=== PATIENT | female | born 1970 | race Caucasian/White ===

== ENCOUNTER 2023-01-21 08:05 | Day surgery (SDC) | payer MEDICAID ==
[2023-01-15 10:57] LABS: BASOPHILS # (AUTO) 0.2 X10'3 (0-0.2); BASOPHILS % (AUTO) 1.7 % (0-1); EOSINOPHILS # (AUTO) 0.8 X10'3 (0-0.9); EOSINOPHILS % (AUTO) 8.3 % (0-6); LYMPHOCYTES # (AUTO) 3.1 X10'3 (1.1-4.8); LYMPHOCYTES % (AUTO) 31.9 % (21-51); MEAN CORPUSCULAR HEMOGLOBIN 28.6 PG (27.0-31.0); MEAN CORPUSCULAR HGB CONC 33.3 g/dL (33.0-36.5); MEAN CORPUSCULAR VOLUME 85.9 FL (78-98); MEAN PLATELET VOLUME 8.6 FL (7.4-10.4); MONOCYTES # (AUTO) 0.8 X10'3 (0-0.9); MONOCYTES % (AUTO) 8.7 % (2-12); NEUTROPHILS # (AUTO) 4.8 X10'3 (1.8-7.7); NEUTROPHILS % (AUTO) 49.4 % (42-75); PRE OP HEMATOCRIT 47.4 % (35.0-45.0); PRE OP HEMOGLOBIN 15.8 g/dL (12.0-16.0); PRE OP PLATELET COUNT 261 X10'3 (140-440); PRE OP WHITE BLOOD COUNT 9.7 10'3 (4.8-10.8); RED BLOOD COUNT 5.52 X10'6 (4.20-5.60); RED CELL DISTRIBUTION WIDTH 14.9 % (11.5-14.5)
[2023-01-15 11:09] LABS: ALBUMIN 3.6 G/DL (3.4-5.0); ALBUMIN/GLOBULIN RATIO 1.1 (1.1-1.5); ALKALINE PHOSPHATASE 77 IU/L (46-116); BLOOD UREA NITROGEN 15 MG/DL (7-18); CHLORIDE 107 MMOL/L (99-107); CREATININE 0.75 MG/DL (0.40-0.90); PRE OP ALT 25 U/L (30-65); PRE OP ANION GAP 8 (8-16); PRE OP AST 15 U/L (10-37); PRE OP BILIRUB, TOTAL 0.4 MG/DL (0.0-1.0); PRE OP GLUCOSE 102 MG/DL (70-104); PRE OP POTASSIUM 4.2 MMOL/L (3.4-5.1); PRE OP SODIUM 143 MMOL/L (135-145); TOTAL CARBON DIOXIDE 27.9 MMOL/L (24-32); eGFR 81 ML/MIN
[~2023-01-21] VITALS: Ht 162.6 cm; Wt 106.0 kg
[2023-01-21] VITALS (14 sets, daily range): BP systolic 120–154; BP diastolic 75–103; PULSE 59–87; RESP 10–16; TEMP 97.9; O2SAT 91–97
[~2023-01-21 08:05] MED LIST: BUPIVAcaine/PF 2.5mg/ml (0.25%) 10ml vial ONE; NO HOME MEDS; clindamycin-Cleocin 900mg/D5W 50 ML IV ONE; famotidine 20mg tablet PO ONE; ringers solution, lacted 1,000 ML IV SCH
[2023-01-21] MEDS ORDERED: ondansetron/PF 4mg/2ml inj IV PRN (09:25)
[2023-01-21] MEDS ORDERED: meperidine/PF 25mg/ml syringe IV PRN ×2 (09:25)
[2023-01-21] MEDS ORDERED: hydrALAZINE 20mg/ml inj. IV PRN (09:25)
[2023-01-21] MEDS ORDERED: ringers solution, lacted 1,000 ML IV SCH (09:25)
[2023-01-21] MEDS ORDERED: acetaminophen 1,000mg/100ml IV 100 ML IV PRN (09:25)
[2023-01-21] MEDS ORDERED: proCHLORperazine 10 MG/2 ml inj IV PRN (09:25)
[2023-01-21] MEDS ORDERED: HYDROmorphone/PF 0.2 MG/ML SYRINGE IV PRN ×2 (09:25)
[2023-01-21] MEDS ORDERED: labetalol 20mg/4ml (5mg/ml) syringe IV PRN (09:25)
[2023-01-21] MEDS ORDERED: sevoflurane 250ml liquid IH ONE (09:32)
[2023-01-21] MEDS ORDERED: fentaNYL/PF 50MCG/1 ML 2ML syringe ONE (09:34)
[2023-01-21] MEDS ORDERED: MIDAZolam 1 MG/ML 5ML VIAL ONE (09:35)
[2023-01-21] MEDS ORDERED: LIDOcaine 0.5% (5mg/ml) 50ml vial ONE (09:51)
[2023-01-21] MEDS ORDERED: propofol inj 20 ML IV ONE ×2 (09:51→10:00)
[2023-01-21] MEDS ORDERED: ondansetron/PF 4mg/2ml inj ONE (10:00)
[2023-01-21] MEDS ORDERED: dexamethasone sod phosphate 4mg/ml inj. ONE (10:00)
--- NOTE | 2023-01-21 10:19 | NUR ---
Received from OR via [facility] accompanied by Anesthesiologist DR DIANE and report given by Anesthesiolgist. VSS. PATIENT TEARFUL. IV IN LEFT HAND 20G NO ISSUES. DRESSING AND BANDAGE ON R ELBOW AND R WRIST, CDI.
--- NOTE | 2023-01-21 10:19 | NUR ---
Received from OR via [facility] accompanied by Anesthesiologist DR RODRÍGUEZ and report given by Anesthesiolgist. VSS. IV IN LEFT HAND 20G NO ISSUES. DRESSING WITH QACE BANDAGE ON R ELBOW AND R WRIST, CDI...PATIENT TEARFUL Addendum: 01/21/23 at 1045 by Glory Bee RN Amended: Links added.
[2023-01-21] MEDS: meperidine/PF 25mg/ml syringe IV PRN ×2 (10:59→11:12)
--- NOTE | 2023-01-21 11:10 | NUR ---
PATIENT HAS MINIMAL BLEED AT RIGHT ELBOW. SPOKE WITH SURGEON. ORDERS TO REINFORCE WITH 4X4 PRESSURE DRESSING AND HAROLDO BANDAGE
--- NOTE | 2023-01-21 11:59 | NUR ---
PATIENT MEETS DISCHARGE CRITERIA. ELBOW BANDAGED ENFORCED, CURRENTLY NO BLEED. VSS. IV DC'D WITH NO ISSUES. GAVE PATIENT HER PURSE, PHONE, AND GLASSES AND WHEELED HER TO HER FRIEND'S CAR Addendum: 01/21/23 at 1218 by Glory Bee RN Amended: Links added.
== END 2023-01-21 11:59 | disposition home or self-care (01) ==
LOC: PAS 08:05
PROVIDERS: ATTEND Orthopaedic Surgery Hand Surgery
DX: G56.01 Carpal tunnel syndrome, right upper limb (principal); G56.21 Lesion of ulnar nerve, right upper limb; F41.9 Anxiety disorder, unspecified; I10 Essential (primary) hypertension; G43.909 Migraine, unspecified, not intractable, without status migrainosus; F31.9 Bipolar disorder, unspecified; Z88.5 Allergy status to narcotic agent; Z88.2 Allergy status to sulfonamides; Z79.899 Other long term (current) drug therapy; Z90.49 Acquired absence of other specified parts of digestive tract; Z98.890 Other specified postprocedural states; Z90.710 Acquired absence of both cervix and uterus; F17.210 Nicotine dependence, cigarettes, uncomplicated; Z72.89 Other problems related to lifestyle; Z86.14 Personal history of Methicillin resistant Staphylococcus aureus infection; Z82.5 Family history of asthma and other chronic lower respiratory diseases; Z82.3 Family history of stroke
CPT/HCPCS: 36415; 64718; 64721; 80053; 82948; 85025; 93005; J1100; J1170; J2175; J2250; J2405; J2704; J3010; J3490; J7030; J7120; Z7506; Z7512; A4215; A6449

== ENCOUNTER 2024-05-13 08:11 | Emergency (ER) | payer MEDICAID ==
[~2024-05-13] VITALS: Ht 162.6 cm; Wt 104.5 kg
[~2024-05-13 08:11] MED LIST changes: -BUPIVAcaine/PF 2.5mg/ml (0.25%) 10ml vial ONE; -clindamycin-Cleocin 900mg/D5W 50 ML IV ONE; -famotidine 20mg tablet PO ONE; -ringers solution, lacted 1,000 ML IV SCH
[2024-05-13 08:14] VITALS: TEMP 98.4
[2024-05-13] MEDS: naproxen 500mg tablet PO ONE (08:42)
[2024-05-13] MEDS: cyclobenzaprine 10mg tablet PO ONE (08:42)
[2024-05-13] MEDS ORDERED: CYCL-1 PO (09:49)
[2024-05-13 10:07] VITALS: BP 132/85; PULSE 98; RESP 17; O2SAT 95
== END 2024-05-13 10:08 | disposition home or self-care (01) ==
LOC: ER 08:12
DX: M54.59 Other low back pain (principal); F17.200 Nicotine dependence, unspecified, uncomplicated; F12.90 Cannabis use, unspecified, uncomplicated; M19.90 Unspecified osteoarthritis, unspecified site; F31.9 Bipolar disorder, unspecified; Z88.2 Allergy status to sulfonamides; Z88.5 Allergy status to narcotic agent; Z79.899 Other long term (current) drug therapy; Z98.890 Other specified postprocedural states; Z72.89 Other problems related to lifestyle; V98.8XXA Other specified transport accidents, initial encounter; Y93.89 Activity, other specified; Y92.89 Other specified places as the place of occurrence of the external cause; Y99.8 Other external cause status
CPT/HCPCS: 72100; 99283

== ENCOUNTER 2024-06-30 13:39 | Emergency (ER) | payer MEDICAID ==
[~2024-06-30] VITALS: Ht 165.1 cm; Wt 109.1 kg
[~2024-06-30 13:39] MED LIST changes: +CYCL-1 PO
[2024-06-30] MEDS ORDERED: CEPH500C2 PO (18:24)
[2024-06-30] MEDS ORDERED: ARIP2TAB67 (18:41)
[2024-06-30] MEDS ORDERED: FLUO-1 (18:41)
[2024-06-30] MEDS ORDERED: HYDR-3717 (18:41)
[2024-06-30 19:42] VITALS: BP 132/80; PULSE 102; RESP 23; TEMP 98.3; O2SAT 98
[2024-06-30] MEDS: cephalexin 250mg capsule PO ONE (19:57)
== END 2024-06-30 20:00 | disposition home or self-care (01) ==
LOC: ER 13:40
DX: L03.115 Cellulitis of right lower limb (principal); M19.90 Unspecified osteoarthritis, unspecified site; F31.9 Bipolar disorder, unspecified; F12.90 Cannabis use, unspecified, uncomplicated; Z88.2 Allergy status to sulfonamides; Z88.5 Allergy status to narcotic agent; Z72.89 Other problems related to lifestyle
CPT/HCPCS: 93971; 99284

== ENCOUNTER 2024-07-05 09:58 | Inpatient (IN) | payer MEDICAID ==
[~2024-07-05] VITALS: Ht 165.1 cm; Wt 109.3 kg
[~2024-07-05 09:58] MED LIST changes: +ARIP2TAB67; -CYCL-1 PO; +FLUO-1; +HYDR-3717; -NO HOME MEDS
[2024-07-05] MEDS: normal saline 1000ml 1,000 ML IV ONE (11:25)
[2024-07-05 11:30] LABS: BASOPHILS # (AUTO) 0.1 X10'3 (0-0.2); BASOPHILS % (AUTO) 0.8 % (0-1); EOSINOPHILS # (AUTO) 0.5 X10'3 (0-0.9); EOSINOPHILS % (AUTO) 4.5 % (0-6); HEMATOCRIT 40.3 % (35.0-45.0); HEMOGLOBIN 13.6 g/dl (12.0-16.0); LYMPHOCYTES # (AUTO) 1.5 X10'3 (1.1-4.8); LYMPHOCYTES % (AUTO) 13.4 % (21-51); MEAN CORPUSCULAR HEMOGLOBIN 28.1 PG (27.0-31.0); MEAN CORPUSCULAR HGB CONC 33.8 g/dL (33.0-36.5); MEAN CORPUSCULAR VOLUME 83.1 FL (78-98); MONOCYTES % (AUTO) 9.1 % (2-12); NEUTROPHILS # (AUTO) 8.2 X10'3 (1.8-7.7); NEUTROPHILS % (AUTO) 72.2 % (42-75); PLATELET COUNT 393 X10'3 (140-440); RED BLOOD COUNT 4.85 X10'6 (4.20-5.60); RED CELL DISTRIBUTION WIDTH 14.9 % (11.5-14.5); WHITE BLOOD COUNT 11.3 X10'3 (4.5-11.0)
[2024-07-05 11:41] LABS: ALANINE AMINOTRANSFERASE 44 U/L (12-78); ALBUMIN 2.6 G/DL (3.4-5.0); ALBUMIN/GLOBULIN RATIO 0.6 (1.1-1.5); ALKALINE PHOSPHATASE 105 IU/L (46-116); ANION GAP 7 (8-16); ASPARTATE AMINO TRANSFERASE 18 U/L (10-37); BILIRUBIN,TOTAL 0.3 MG/DL (0.1-1.0); BLOOD UREA NITROGEN 9 MG/DL (7-18); BUN/CREATININE RATIO 14.3 (10.0-20.0); CALCIUM 8.9 MG/DL (8.5-10.1); CHLORIDE 106 MMOL/L (99-107); CREATININE 0.63 MG/DL (0.40-0.90); GLUCOSE 85 MG/DL (70-104); POTASSIUM 4.5 MMOL/L (3.5-5.1); SODIUM 141 MMOL/L (135-145); TOTAL CARBON DIOXIDE 27.6 MMOL/L (24-32); TOTAL PROTEIN 6.9 G/DL (6.4-8.2); eCRCL 92 ML/MIN; eGFR > 90 ML/MIN
[2024-07-05 12:28] LABS: PLATELET ESTIMATE NORMAL; TOTAL CELLS COUNTED 100
[2024-07-05] MEDS ORDERED: magnesium sulf-water 4G/100mL 100 ML IV PRN (12:40)
[2024-07-05] MEDS ORDERED: potassium Cl 40MEQ/1/2NS 520ml 520 ML IV PRN (12:40)
[2024-07-05] MEDS ORDERED: acetaminophen 325mg tablet PO PRN (12:40)
[2024-07-05] MEDS ORDERED: magnesium hydroxide 30ml (MOM) UD suspension PO PRN (12:40)
[2024-07-05] MEDS ORDERED: morphine 2 MG/ML inj. syringe IV PRN (12:40)
[2024-07-05] MEDS ORDERED: potassium Cl 20 mEq SR tablet PO PRN ×2 (12:40)
[2024-07-05] MEDS ORDERED: ondansetron/PF 4mg/2ml inj IV PRN (12:40)
[2024-07-05] MEDS ORDERED: magnesium Cl slow-release 64mg tablet PO PRN (12:40)
[2024-07-05] MEDS ORDERED: mag hydrox/Alum hydrox/simeth 30ml oral suspension PO PRN (12:40)
[2024-07-05] MEDS ORDERED: magnesium sulf-water 2g/50mL 50 ML IV PRN (12:40)
[2024-07-05] MEDS ORDERED: iohexol 300mg/ml 100ml inj. ONE (12:54)
[2024-07-05 13:11] LABS: HEMOGLOBIN A1C 5.3 % (4.5-6.2)
[2024-07-05] MEDS: clindamycin 300mg/D5W 50mL 50 ML IV SCH (14:08)
[2024-07-05] MEDS: clindamycin 300mg/D5W 50mL 50 ML IV ONE (14:08)
[2024-07-05] MEDS: normal saline 1000ml 1,000 ML IV SCH (14:09)
[2024-07-05] MEDS ORDERED: ARIP5TAB12 PO (14:16)
[2024-07-05] MEDS ORDERED: HYDROcodone/acetaminophen 5mg/325mg tablet PO PRN (16:00)
[2024-07-05] MEDS: HYDROcodone/acetaminophen 10/325mg tab PO PRN (16:27)
[2024-07-05] MEDS: K and/or MAG REPLACEMENT MC SCH (19:59)
[2024-07-05] MEDS: docusate sod 100mg capsule PO SCH (20:08)
[2024-07-06] VITALS (7 sets, daily range): BP systolic 122–168; BP diastolic 68–95; PULSE 71–83; RESP 13–18; TEMP 97.3–98.4; O2SAT 91–95
[2024-07-06 06:26] LABS: BASOPHILS # (AUTO) 0.1 X10'3 (0-0.2); BASOPHILS % (AUTO) 0.7 % (0-1); EOSINOPHILS # (AUTO) 0.7 X10'3 (0-0.9); EOSINOPHILS % (AUTO) 6.6 % (0-6); HEMATOCRIT 39.2 % (35.0-45.0); HEMOGLOBIN 13.1 g/dl (12.0-16.0); LYMPHOCYTES # (AUTO) 1.6 X10'3 (1.1-4.8); LYMPHOCYTES % (AUTO) 15.1 % (21-51); MEAN CORPUSCULAR HEMOGLOBIN 27.7 PG (27.0-31.0); MEAN CORPUSCULAR HGB CONC 33.3 g/dL (33.0-36.5); MEAN CORPUSCULAR VOLUME 83.1 FL (78-98); MEAN PLATELET VOLUME 8.2 FL (7.4-10.4); MONOCYTES % (AUTO) 9.8 % (2-12); NEUTROPHILS # (AUTO) 7.3 X10'3 (1.8-7.7); NEUTROPHILS % (AUTO) 67.8 % (42-75); PLATELET COUNT 381 X10'3 (140-440); RED BLOOD COUNT 4.71 X10'6 (4.20-5.60); WHITE BLOOD COUNT 10.7 X10'3 (4.5-11.0)
[2024-07-06 06:39] LABS: ALBUMIN 2.4 G/DL (3.4-5.0); ANION GAP 9 (8-16); BLOOD UREA NITROGEN 10 MG/DL (7-18); BUN/CREATININE RATIO 16.1 (10.0-20.0); CALCIUM 8.6 MG/DL (8.5-10.1); CHLORIDE 104 MMOL/L (99-107); CHOL/HDL RATIO 4.7 (0.00-4.99); CHOLESTEROL 141 MG/DL (0-200); CREATININE 0.62 MG/DL (0.40-0.90); GLUCOSE 92 MG/DL (70-104); HDL CHOLESTEROL 30 MG/DL (35-60); LDL CHOLESTEROL 99 MG/DL (50-100); MAGNESIUM 2.2 MG/DL (1.5-2.4); POTASSIUM 3.9 MMOL/L (3.5-5.1); SODIUM 137 MMOL/L (135-145); TOTAL CARBON DIOXIDE 24.3 MMOL/L (24-32); TRIGLYCERIDES 69 MG/DL (20-135); eCRCL 93 ML/MIN; eGFR > 90 ML/MIN
[2024-07-06] MEDS: lactobacillus rhamnosus 10,000 MMU CELLS/CAPSULE PO SCH (08:59)
[2024-07-06] MEDS: aripiprazole 5mg tablet PO SCH (08:59)
[2024-07-06] MEDS: FLUoxetine 20mg capsule PO SCH (08:59)
[2024-07-06] MEDS: pantoprazole 40mg Tablet.DR PO SCH (08:59)
[2024-07-06] MEDS: enoxaparin 40mg/0.4ml syringe SUBCUT SCH (09:00)
[2024-07-06] MEDS ORDERED: albuterol 2.5 MG/3 ML nebule NEB PRN (11:10)
[2024-07-06] MEDS: nicotine 21mg patch - 24 hr TD SCH (12:28)
[2024-07-06] MEDS: vancomycin/NS 1 GM ADD-VANTAGE 250 ML IV SCH (15:41)
[2024-07-06] MEDS: ipratropium/albuterol 3ml nebule NEB SCH (16:20)
[2024-07-06] MEDS ORDERED: ipratropium/albuterol 3ml nebule NEB PRN (16:30)
[2024-07-06] MEDS: piperacillin/tazo 3.375gm/50ml 50 ML IV SCH (21:04)
[2024-07-07] MEDS: piperacillin/tazo 3.375gm/50ml 50 ML IV SCH (02:49)
[2024-07-07] MEDS ORDERED: aripiprazole 5mg tablet PO SCH (04:12)
[2024-07-07 04:14] VITALS: O2SAT 93
[2024-07-07 04:37] VITALS: PULSE 66; RESP 18; O2SAT 97
[2024-07-07 04:58] LABS: BASOPHILS # (AUTO) 0.1 X10'3 (0-0.2); BASOPHILS % (AUTO) 0.6 % (0-1); EOSINOPHILS # (AUTO) 0.6 X10'3 (0-0.9); EOSINOPHILS % (AUTO) 5.8 % (0-6); HEMATOCRIT 39.4 % (35.0-45.0); HEMOGLOBIN 12.8 g/dl (12.0-16.0); LYMPHOCYTES % (AUTO) 17.8 % (21-51); MEAN CORPUSCULAR HEMOGLOBIN 27.3 PG (27.0-31.0); MEAN CORPUSCULAR HGB CONC 32.4 g/dL (33.0-36.5); MEAN CORPUSCULAR VOLUME 84.2 FL (78-98); MONOCYTES # (AUTO) 1.2 X10'3 (0-0.9); MONOCYTES % (AUTO) 10.5 % (2-12); NEUTROPHILS # (AUTO) 7.2 X10'3 (1.8-7.7); NEUTROPHILS % (AUTO) 65.3 % (42-75); PLATELET COUNT 374 X10'3 (140-440); RED BLOOD COUNT 4.68 X10'6 (4.20-5.60); RED CELL DISTRIBUTION WIDTH 15.3 % (11.5-14.5); WHITE BLOOD COUNT 11.1 X10'3 (4.5-11.0)
[2024-07-07 05:12] LABS: ALBUMIN 2.3 G/DL (3.4-5.0); ANION GAP 7 (8-16); BLOOD UREA NITROGEN 10 MG/DL (7-18); BUN/CREATININE RATIO 14.5 (10.0-20.0); CALCIUM 8.6 MG/DL (8.5-10.1); CHLORIDE 107 MMOL/L (99-107); CREATININE 0.69 MG/DL (0.40-0.90); GLUCOSE 105 MG/DL (70-104); MAGNESIUM 2.2 MG/DL (1.5-2.4); POTASSIUM 4.4 MMOL/L (3.5-5.1); SODIUM 142 MMOL/L (135-145); TOTAL CARBON DIOXIDE 27.9 MMOL/L (24-32); eCRCL 84 ML/MIN; eGFR 89 ML/MIN
[2024-07-07 06:00] VITALS: BP 131/67; PULSE 76; RESP 14; TEMP 97.9; O2SAT 93
[2024-07-07 07:15] VITALS: RESP 16
[2024-07-07] MEDS ORDERED: CEPH250T PO (11:07)
[2024-07-07] MEDS ORDERED: PANT40TA54 PO (11:07)
[2024-07-07] MEDS ORDERED: LACT1CAP26 PO (11:07)
[2024-07-07] MEDS ORDERED: ALBU8HFA PO (11:21)
[2024-07-07] MEDS ORDERED: LEVO750T68 PO (11:22)
[2024-07-07] MEDS ORDERED: MUPI1OIN5 TOP (11:23)
[2024-07-07] MEDS ORDERED: VANCOMYCIN LEVEL IV ONE (14:30)
== END 2024-07-07 13:00 | disposition home or self-care (01) | DRG 383 ==
LOC: ER 09:58 → ED HOLD 12:17 → SUR 3N 07-06 02:09
PROVIDERS: ADMIT Family Medicine; ATTEND Family Medicine
DX: L03.115 Cellulitis of right lower limb (principal); D72.829 Elevated white blood cell count, unspecified; I10 Essential (primary) hypertension; Z20.822 Contact with and (suspected) exposure to COVID-19; E66.01 Morbid (severe) obesity due to excess calories; F32.A Depression, unspecified; Z88.2 Allergy status to sulfonamides; Z79.899 Other long term (current) drug therapy; Z88.5 Allergy status to narcotic agent; Z68.41 Body mass index [BMI] 40.0-44.9, adult
CPT/HCPCS: 36415; 71045; 73701; 80048; 80053; 80061; 83036; 83605; 83735; 84145; 85007; 85025; 87040; 87081; 87502; 87503; 87811; 99285; G0378; J1650; J2543; J3370; J3490; J7030; Q9967